=== PATIENT | female | born 1995 | race Caucasian/White ===

== ENCOUNTER 2016-12-27 13:32 | Emergency (ER) | payer OTHER ==
[~2016-12-27] VITALS: Ht 172.7 cm; Wt 67.9 kg
[2016-12-27 13:40] VITALS: TEMP 36.4; Ht 172.7 cm; Wt 67.9 kg
[2016-12-27] MEDS ORDERED: ACCUTANE PO (14:18)
--- NOTE | 2016-12-27 14:32 | DIAGNOSTIC IMAGING REPORT ---
CHEST ONE VIEW PORTABLE CLINICAL HISTORY: 21 years-old Female presenting with cough and fever. TECHNIQUE: Portable upright AP view of the chest was obtained. COMPARISON: None. FINDINGS: Cardiomediastinal silhouette normal. Lungs and pleural spaces clear. Osseous structures normal. Upper abdomen normal. IMPRESSION: 1. No acute cardiopulmonary disease. Electronically signed by: David Paulino M.D. 12/27/2016 2:31 PM Dictated Date/Time: 12/27/2016 2:31 PM
[2016-12-27] MEDS ORDERED: AMOXICILLIN 500 MG CAP PO STA (14:56)
[2016-12-27] MEDS ORDERED: AMOX500C3 PO (15:01)
[2016-12-27 15:22] VITALS: BP 124/72; PULSE 103; O2SAT 99
--- NOTE | 2016-12-27 19:03 | EMERGENCY ROOM VISIT NOTE ---
History Report prepared by Hazel: Omer Conn Under the Supervision of: Dr. Sebastien Wilson D.O. First contact with patient: 13:46 Chief Complaint: FEVER Stated Complaint: FEVER, BURNING IN THROAT History of Present Illness The patient is a 21 year old female who presents to the Emergency Room with complaints of feeling feverish that began yesterday morning. Her temperature in triage today was 36.4 C. For the past two days, she has been having a burning sensation in her throat, a non-productive cough, left ear pain, and a loss of appetite. Pt denies headache, change in vision, rhinorrhea, chest pain, shortness of breath, nausea, vomiting, diarrhea, pain with urination, and melena. She notes having some left eye burning when she wakes up and falls asleep. This eye pain has been present for the past year. She has seen multiple eye doctors in regards to this pain. Source of History: patient Onset: yesterday morning Position: other (global) Symptom Intensity: minimal Quality: other (Fever) Timing: constant Associated Symptoms: + sorethroat, + cough, No headache, No chest pain, No SOB, No nausea, No vomiting, No melena, No diarrhea, No urinary symptoms Note: She has left ear pain. Review of Systems See HPI for pertinent positives & negatives. A total of 10 systems reviewed and were otherwise negative. Past Medical & Surgical Medical Problems: (1) On Accutane therapy Family History Patient reports no known family medical history. Social History Smoking Status: Never Smoker Smokeless Tobacco Use: No Marital Status: single Housing Status: lives with family Occupation Status: student Current/Historical Medications Scheduled Amoxicillin (Amoxil), 500 MG PO TID [Accutane], 1 DOSE PO DAILY Allergies Coded Allergies: No Known Allergies (Unverified , 12/27/16) Physical Exam Vital Signs Date Time Temp Pulse Resp B/P (MAP) Pulse Ox O2 Delivery O2 Flow Rate FiO2 12/27/16 15:22 103 18 124/72 99 12/27/16 13:40 36.4 105 18 118/76 97 Room Air Physical Exam GENERAL: alert, sitting up in bed, well appearing, well nourished, no distress, non-toxic EYE EXAM: normal conjunctiva EARS: Right TM is clear. Left ear with a cerumen impaction, but able to visualize the posterior lateral TM which appears to be bulging and swollen. OROPHARYNX: no exudate, no erythema, lips, buccal mucosa, and tongue normal and mucous membranes are moist NECK: supple, no nuchal rigidity, no adenopathy, non-tender, negative Brudzinski 's sign. LUNGS: Clear to auscultation. Normal chest wall mechanics HEART: no murmurs, S1 normal and S2 normal ABDOMEN: abdomen soft, non-tender, normo-active bowel sounds, no masses, no rebound or guarding. BACK: Back is symmetrical on inspection and there is no deformity, no midline tenderness, no CVA tenderness. SKIN: no rashes and no bruising UPPER EXTREMITIES: upper extremities are grossly normal. LOWER EXTREMITIES: No pitting edema. NEURO EXAM: Normal sensorium, cranial nerves II-XII grossly intact, normal speech, no gross weakness of arms, no gross weakness of legs. Medical Decision & Procedures ER Provider Diagnostic Interpretation: Radiology results as stated below per my review and the radiologist's interpretation: CHEST ONE VIEW PORTABLE CLINICAL HISTORY: 21 years-old Female presenting with cough and fever. TECHNIQUE: Portable upright AP view of the chest was obtained. COMPARISON: None. FINDINGS: Cardiomediastinal silhouette normal. Lungs and pleural spaces clear. Osseous structures normal. Upper abdomen normal. IMPRESSION: 1. No acute cardiopulmonary disease. Electronically signed by: David Paulino M.D. 12/27/2016 2:31 PM Dictated Date/Time: 12/27/2016 2:31 PM Medications Administered Medications (Trade) Dose Ordered Sig/Gladys Route Start Time Stop Time Status Last Admin Dose Admin Amoxicillin (Amoxil Cap) 500 mg NOW STAT PO 12/27/16 14:56 12/27/16 14:58 DC 12/27/16 15:28 500 MG ED Course ED COURSE: Vital signs were reviewed and showed normal vitals. The patients medical record was reviewed The above diagnostic studies were performed and reviewed. ED treatments and interventions as stated above. 1346: The patient was evaluated in room B8. A complete history and physical examination was performed. 1456: Ordered Amoxicillin 500 mg PO 1506: Upon reevaluation, the patient is resting. I discussed my findings with the patient and she understands and agrees with the treatment plan. Based on the patients age, coexisting illnesses, exam and lab findings the decision to treat as an outpatient was made. The patient remained stable while under my care. The patient appeared well at the time of discharge. Medical Decision Differential diagnosis: Etiologies such as viral syndrome, otitis, pharyngitis, pneumonia, influenza, meningitis, urinary tract infection, sepsis, bacteremia, as well as others were entertained. Patient is a 21-year-old female that presents to the ER for feeling hot associated with cough, sore throat and left ear pain. No recorded fevers about 100.4. Patient's no significant medical problems. Shots are up-to-date. On exam lungs are clear. Vitals are unremarkable with exception of a mild tachycardia. Chest x-ray shows no acute infiltrate. Rapid strep was negative. Left TM was slightly enlarged and protruding. Based on this examination with her symptoms she was given amoxicillin. She has no allergies. She was discharged follow-up with S. Discussed with Pt concerning signs and symptoms to watch out for. Pt was instructed to follow up with their PCP and discussed with the patient their option to return to the ED at anytime for persistent or worsening symptoms. The appropriate anticipatory guidance and out-patient management, including indications for return to the emergency department, were explained at length to the patient and understood. Medication Reconcilliation Current Medication List: was personally reviewed by me Blood Pressure Screening Patient's blood pressure: Normal blood pressure Blood pressure disposition: Did not require urgent referral Impression Primary Impression: Otitis media Additional Impression: Viral URI Scribe Attestation The scribe's documentation has been prepared under my direction and personally reviewed by me in its entirety. I confirm that the note above accurately reflects all work, treatment, procedures, and medical decision making performed by me. Departure Information Dispostion Home / Self-Care Prescriptions Amoxicillin (AMOXIL) 500 Mg Cap 500 MG PO TID, #30 CAP Prov: Sebastien Wilson, DO 12/27/16 Referrals No Doctor, Assigned (PCP) Forms HOME CARE DOCUMENTATION FORM, IMPORTANT VISIT INFORMATION Patient Instructions ED Otitis Media Acute Adult, My [facility] Additional Instructions Please follow up with your primary care doctor or if you are a student, [facility] with in the next 24 hours. Any worsening of your symptoms, please return to the ED immediately. This includes any fevers greater than 100.4, worsening pain, chest pain, shortness breath, persistent nausea, vomiting, unable to eat or drink, or any other concerning signs or symptoms from your standpoint. Please take the antibiotics as prescribed. Problem Qualifiers Primary Impression: Otitis media Otitis media type: unspecified Chronicity: acute Laterality: unspecified laterality Qualified Codes: H66.90 - Otitis media, unspecified, unspecified ear
== END 2016-12-27 15:31 | disposition home or self-care (01) ==
LOC: C.EDB 13:33
DX: H66.92 Otitis media, unspecified, left ear (principal); J06.9 Acute upper respiratory infection, unspecified

== ENCOUNTER 2017-01-22 16:13 | Emergency (ER) | payer OTHER ==
[~2017-01-22] VITALS: Ht 170.2 cm; Wt 66.7 kg
[~2017-01-22 16:13] MED LIST: ACCUTANE PO
[2017-01-22 16:15] VITALS: TEMP 36.7; O2SAT 98; Ht 170.2 cm; Wt 66.7 kg
--- NOTE | 2017-01-22 16:21 | EMERGENCY ROOM VISIT NOTE ---
History Report prepared by Hazel: Vasile Ko Under the Supervision of: Dr. Nelson Bundy M.D. First contact with patient: 16:21 Chief Complaint: HEADACHE Stated Complaint: VERY STRONG HEADACHE History of Present Illness The patient is a 21 year old female who presents to the Emergency Room with complaints of an intermittent headache that started yesterday. She rates her pain as an 8/10 in severity and descries it as a "squeezing sensation". The patient reports that the headache is located throughout her head. She states that she believed that her headache was due to her lack of eating, and admits that her headache resolved after eating. The patient states that her headache returned later that day and she went to bed with a headache. She reports that she was able to get 6 hours of sleep, but admits that she was intermittently awake through the night. She admits that she experienced one episode of emesis.The patient states she was seen here when she had a left ear infection 1 month ago. She states that she was given Amoxicillin but had not taken any because she is on Accutane and was afraid there would be an interaction. The patient admits that she is currently nauseous and has a headache. She denies going to [facility] for her symptoms. 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 She states that her last normal menstrual period was January 02 and admits that she is typically regular. The patient denies fevers, chills, cough, congestion, diarrhea, urinary symptoms, possible Source of History: patient Onset: yesterday Position: head Symptom Intensity: 8/10 Quality: other (squeezing) Timing: intermittent Modifying Factors (Relieving): eating Associated Symptoms: + nausea, + vomiting, No fevers, No chills, No cough, No diarrhea, No urinary symptoms Review of Systems See HPI for pertinent positives and negatives. A total of ten systems were reviewed and were otherwise negative. Past Medical & Surgical Medical Problems: (1) On Accutane therapy Family History Patient reports no known family medical history. Social History Smoking Status: Never Smoker Marital Status: single Housing Status: lives with family Occupation Status: student Current/Historical Medications Scheduled [Accutane], 1 DOSE PO DAILY Allergies Coded Allergies: No Known Allergies (Unverified , 01/22/17) Physical Exam Vital Signs Date Time Temp Pulse Resp B/P (MAP) Pulse Ox O2 Delivery O2 Flow Rate FiO2 01/22/17 18:44 85 16 121/66 01/22/17 16:15 36.7 96 15 108/74 98 Room Air Physical Exam GENERAL: Awake, alert, well-appearing, in no distress HENT: Normocephalic, atraumatic. Oropharynx unremarkable. Dry mucous membranes. Left ear impacted with cerumen. EYES: Normal conjunctiva. Sclera non-icteric. No dysconjugate gaze or nystagmus. NECK: Supple. No nuchal rigidity. FROM. No JVD. RESPIRATORY: Clear to auscultation. CARDIAC: Regular rate, normal rhythm. Extremities warm and well perfused. Pulses equal. ABDOMEN: Soft, non-distended. No tenderness to palpation. No rebound or guarding. No masses. RECTAL: Deferred. MUSCULOSKELETAL: Chest examination reveals no tenderness. The back is symmetrical on inspection without obvious abnormality. There is no CVA tenderness to palpation. No joint edema. LOWER EXTREMITIES: Calves are equal size bilaterally and non-tender. No edema. No discoloration. NEURO: Normal sensorium. No sensory or motor deficits noted. 5/5 strength in all four extremities. Cerebellar intact. Normal alternating palms and finger to nose. SKIN: No rash or jaundice noted. Medical Decision & Procedures Laboratory Results 01/22/17 17:45 Red Blood Count 4.59, Mean Corpuscular Volume 84.7, Mean Corpuscular Hemoglobin 27.5, Mean Corpuscular Hemoglobin Concent 32.4, Mean Platelet Volume 10.5, Neutrophils (%) (Auto) 61.6, Lymphocytes (%) (Auto) 31.6, Monocytes (%) (Auto) 5.7, Eosinophils (%) (Auto) 0.6, Basophils (%) (Auto) 0.3, Neutrophils # (Auto) 4.00, Lymphocytes # (Auto) 2.05, Monocytes # (Auto) 0.37, Eosinophils # (Auto) 0.04, Basophils # (Auto) 0.02 01/22/17 17:45 Test 01/22/17 17:45 White Blood Count 6.49 K/uL (4.8-10.8) Red Blood Count 4.59 M/uL (4.2-5.4) Hemoglobin 12.6 g/dL (12.0-16.0) Hematocrit 38.9 % (37-47) Mean Corpuscular Volume 84.7 fL (80-100) Mean Corpuscular Hemoglobin 27.5 pg (25-34) Mean Corpuscular Hemoglobin Concent 32.4 g/dl (32-36) Platelet Count 285 K/uL (130-400) Mean Platelet Volume 10.5 fL (7.4-10.4) Neutrophils (%) (Auto) 61.6 % Lymphocytes (%) (Auto) 31.6 % Monocytes (%) (Auto) 5.7 % Eosinophils (%) (Auto) 0.6 % Basophils (%) (Auto) 0.3 % Neutrophils # (Auto) 4.00 K/uL (1.4-6.5) Lymphocytes # (Auto) 2.05 K/uL (1.2-3.4) Monocytes # (Auto) 0.37 K/uL (0.11-0.59) Eosinophils # (Auto) 0.04 K/uL (0-0.5) Basophils # (Auto) 0.02 K/uL (0-0.2) RDW Standard Deviation 41.5 fL (36.4-46.3) RDW Coefficient of Variation 13.5 % (11.5-14.5) Immature Granulocyte % (Auto) 0.2 % Immature Granulocyte # (Auto) 0.01 K/uL (0.00-0.02) Anion Gap 7.0 mmol/L (3-11) Est Creatinine Clear Calc Drug Dose 134.3 ml/min Estimated GFR () 148.1 Estimated GFR (Non- 127.8 BUN/Creatinine Ratio 14.7 (10-20) Calcium Level 9.3 mg/dl (8.5-10.1) Human Chorionic Gonadotropin, Qual NEG (NEG) Chemistry Specimen Hemolysis Laboratory results reviewed by me Medications Administered Medications (Trade) Dose Ordered Sig/Gladys Route Start Time Stop Time Status Last Admin Dose Admin Sodium Chloride 1,000 ml @ 999 mls/hr Q1H1M STAT IV 01/22/17 16:55 01/22/17 17:55 DC 01/22/17 17:55 999 MLS/HR Sodium Chloride 1,000 ml @ 999 mls/hr Q1H1M STAT IV 01/22/17 16:55 01/22/17 17:55 DC 01/22/17 17:55 999 MLS/HR Metoclopramide HCl (Reglan Inj) 10 mg NOW STAT IV 01/22/17 16:55 01/22/17 16:59 DC 01/22/17 17:55 10 MG Diphenhydramine HCl (Benadryl Inj) 25 mg NOW STAT IV 01/22/17 16:55 01/22/17 16:59 DC 01/22/17 17:54 25 MG Ketorolac Tromethamine (Toradol Inj) 30 mg NOW STAT IV 01/22/17 16:55 01/22/17 16:59 DC 01/22/17 17:55 30 MG ED Course 1655: Ordered Toradol injection 30 mg IV, Benadryl Injection 25 mg IV, Reglan Injection 10 mg IV, Sodium Chloride 1000 ml @ 999 mls/hr IV. 1711: The patient was evaluated in room A10. A complete history and physical exam was performed. 0: I reevaluated the patient and her headache is better. I discussed her results and treatment plan. She is still lightheaded but does not want second bag of fluids. She states that she will get fluids at home and follow up with clinic. The patient is ready for discharge. Medical Decision I reviewed the patient's past medical history, medications, and the nursing notes as described above. The patient's presentation and history were concerning for tension headache, migraine, meningitis, intracranial hemorrhage, dehydration, electrolyte abnormalities. The patient is a 21-year-old woman who presents emergency Department with complaint of headache and lightheadedness per history of present illness. On arrival the patient appears uncomfortable but in no acute distress. She is afebrile with stable vital signs. Her neck is supple with full range of motion without signs of meningismus. Neurologically intact with no disconjugate gaze or complaints of changes in vision. She does appear clinically dry his and has had significant stress recently related to her exams. Labs unremarkable with WBC within normal limits and BMP unremarkable. Patient feeling improved after migraine cocktail resolution of headache and while improved with her lightheadedness still feels it is there residually but prefers to orally hydrate at home and declines her second liter of normal saline. Findings and plan for follow-up in [facility] d/w patient. Patient agreeable and d /c'd per discharge instructions. Medication Reconcilliation Current Medication List: was personally reviewed by me Blood Pressure Screening Patient's blood pressure: Normal blood pressure Impression Primary Impression: Headache Scribe Attestation The scribe's documentation has been prepared under my direction and personally reviewed by me in its entirety. I confirm that the note above accurately reflects all work, treatment, procedures, and medical decision making performed by me. Departure Information Dispostion Home / Self-Care Referrals No Doctor, Assigned (PCP) Forms HOME CARE DOCUMENTATION FORM, IMPORTANT VISIT INFORMATION Patient Instructions ED Headache Migraine, ED Headache Tension, My [facility] Additional Instructions Please follow up with the student health clinic on Tuesday for re-evaluation to discuss your symptoms as well as your stress relating to your exams. Your symptoms may have been provoked by mild dehydration, stress surrounding your school work, as well as irregular sleeping habits. Your exam and lab results did not show signs of an emergent condition at this time. Drink plenty of fluids to ensure hydration. Use Tylenol or ibuprofen for pain as needed. These are safe to use with your current medication. Return to the emergency department for worsening symptoms as described in the accompanying instructions.
[2017-01-22] MEDS ORDERED: KETOROLAC TROMETHAMINE 30 MG/ML VIAL IV STA (16:55)
[2017-01-22] MEDS ORDERED: METOCLOPRAMIDE HCL INJ 5 MG/ML 2 ML VIAL IV STA (16:55)
[2017-01-22] MEDS ORDERED: SODIUM CHLORIDE 0.9% 1000ML 1,000 ML IV STA ×2 (16:55)
[2017-01-22] MEDS ORDERED: DiphenhydrAMINE HCL 50 MG/ML VIAL IV STA (16:55)
[2017-01-22 17:53] LABS: BASO % 0.3 %; BASO ABS # 0.02 K/uL (0-0.2); COMPLETE YES; EOS % 0.6 %; HEMATOCRIT 38.9 % (37-47); IG% 0.2 %; LYMPH % 31.6 %; LYMPH ABS # 2.05 K/uL (1.2-3.4); MEAN CELL VOLUME 84.7 fL (80-100); MEAN CORPUSCULAR HEMOGLOBIN 27.5 pg (25-34); MEAN CORPUSCULAR HGB CONC 32.4 g/dl (32-36); MEAN PLATELET VOLUME 10.5 fL (7.4-10.4); MONO % 5.7 %; NEUT % 61.6 %; PLATELET COUNT 285 K/uL (130-400); RED BLOOD COUNT 4.59 M/uL (4.2-5.4); WHITE BLOOD COUNT 6.49 K/uL (4.8-10.8)
[2017-01-22 18:15] LABS: PREG INTERNAL NEGATIVE QC NEG CLEAR BACKGROUND; PREG INTERNAL POSITIVE QC POS CONTROL LINE
[2017-01-22 18:19] LABS: BUN/CREATININE RATIO 14.7 (10-20); CALCIUM 9.3 mg/dl (8.5-10.1); CREATININE 0.65 mg/dl (0.60-1.20); POTASSIUM 3.9 mmol/L (3.5-5.1)
[2017-01-22 18:44] VITALS: BP 121/66; PULSE 85
== END 2017-01-22 19:16 | disposition home or self-care (01) ==
LOC: C.EDB 16:14 → C.EDA 19:16
DX: R51 Headache (principal)